=== PATIENT | female | born 1970 | race Asian ===

== ENCOUNTER 2018-06-04 16:50 | Emergency (ER) | payer MEDICAID ==
[~2018-06-04] VITALS: Ht 160 cm; Wt 60.0 kg
[2018-06-04 16:55] VITALS: BP 135/84
[2018-06-04] MEDS ORDERED: TETanus/Pertussis (Acell)/Diphther VAC/PF (Tdap-Adult) 0.5ml syringe IM ONE (17:05)
[2018-06-04] MEDS ORDERED: LIDOcaine 1.5% w/epinephrine 1:200,000 5ml ampul IJ ONE (17:05)
[2018-06-04] MEDS ORDERED: ACET-3067 PO (17:15)
== END 2018-06-04 17:38 | disposition home or self-care (01) ==
LOC: ER 16:51
DX: S61.211A Laceration without foreign body of left index finger without damage to nail, initial encounter (principal); Z79.899 Other long term (current) drug therapy; W26.0XXA Contact with knife, initial encounter; Y93.G1 Activity, food preparation and clean up; Y92.89 Other specified places as the place of occurrence of the external cause; Y99.8 Other external cause status
CPT/HCPCS: 64450; 90471; 90715; 99284